=== PATIENT | male | born 1985 | race Caucasian/White ===

== ENCOUNTER 2022-07-18 20:59 | Emergency (ER) | payer OTHER ==
[2022-07-18 21:14] VITALS: TEMP 97.8
--- NOTE | 2022-07-18 21:31 | ED ---
General Adult HPI - General Chief complaint: Psychiatric Symptoms Stated complaint: Mental health Time Seen by Provider: 07/18/22 21:20 Source: patient, police, RN notes reviewed, old records reviewed Mode of arrival: ambulatory Limitations: no limitations - History of Present Illness Initial comments: Patient is a 36-year-old male with past medical history remarkable for bipolar disorder who states he is compliant with his medications was petitioned by his mother via court order petitioned for psychiatric evaluation. Has type 1 diabetes, and states his sugars usually run between 200- 300. Denies any nausea, vomiting, abdominal pain. Denies any chest pain. Denies any shortness of breath. States he is compliant with his insulin. States he is compliant with medications but is overdue for his shot she states he plans on getting the next few days. States it was due on the which is 2 days ago. Denies any suicidal or homicidal ideations, attempts, plans. Denies any visual or auditory hallucinations. Patient's mother left a lengthy note the dictation, however to paraphrase the patient may not be taking any of his medications, and she is concerned that he is convinced medical administrative technician otherwise. States he is severely bipolar. They have been urging him to go back to be a hospital for treatment but he will go. They're concerned that he is not taking care of his blood sugar level. He has been admitted to the [facility] 3 or 4 times in last 2 years. They're concerned that he may be using drugs. He is a . He is a history of delusional thoughts but are uncertain if he currently is having them. He is supposed be taking his medication in front of them but he doesn't. Patient states he is taking his medications when I discussed the dictation with him. He understands that he is on a court-ordered petition requires psychiatric evaluation because of it. Denies delusions. Denies hallucinations. Has no other acute complaints at this time. Is cooperative. - Related Data Allergies Allergy/AdvReac Type Severity Reaction Status Date / Time No Known Allergies Allergy Verified 07/18/22 22:08 Review of Systems ROS Statement: Those systems with pertinent positive or pertinent negative responses have been documented in the HPI. Review of Systems: CONST: Denies fever EYES: Denies blurry vision ENT: Denies nasal congestion C/V: Denies Chest pain RESP: Denies shortness of breath GI: Denies abdominal pain : Denies dysuria SKIN: Denies rash. MSK: Denies joint pain. NEURO: Denies headache PSYCH: Denies suicidal and homicidal ideations/plans/attempts. Denies visual or auditory hallucinations. ROS Other: All systems not noted in ROS Statement are negative. Past Medical History Past Medical History: Diabetes Mellitus Additional Past Medical History / Comment(s): Type I DM History of Any Multi-Drug Resistant Organisms: None Reported Past Surgical History: Orthopedic Surgery Additional Past Surgical History / Comment(s): Facial Surgery Past Psychological History: ADD/ADHD, Anxiety, Bipolar, Depression Smoking Status: Current every day smoker Past Alcohol Use History: None Reported Past Drug Use History: Marijuana General Exam - General Exam Comments Initial Comments: General: Appears in no acute distress. HEAD: Normal with no signs of head trauma. EYES: PERRLA, EOMI, conjunctiva normal, no discharge. ENT: Hearing grossly intact, normal oropharynx. RESPIRATORY: Clear breath sounds bilaterally. No wheezes, rales, or rhonchi. C/V: Regular rate and rhythm. S1 and S2 auscultated, no edema, peripheral pulses 2+ and intact throughout ABD: Abd is soft, nontender, nondistended EXT: Normal range of motion, no obvious deformity SKIN: No rashes or lesions observed on exposed skin. NEURO: Alert and oriented 4. Limitations: no limitations Course Vital Signs 07/18/22 07/19/22 07/19/22 21:06 00:00 01:48 Temperature 97.8 F Pulse Rate 103 H 92 85 Respiratory 18 16 Rate Blood Pressure 129/78 118/77 121/74 O2 Sat by Pulse 98 97 Oximetry Medical Decision Making - Medical Decision Making Based on the patient's presentation and physical exam, as well as the corner dictation, I do believe he requires psychiatric evaluation. Was placed in green scrubs. Sitter was ordered. BAT was obtained and is 0. UDS is pending at this time. Vital signs are within acceptable limits. I did request that we obtain a Accu-Chek and he was in agreement with this plan.Patient did just eat a sandwich, chips, juice. Accu-Chek is 293. He is on postprandial insulin dosing, and therefore we will provide him with his normal dose of 8 units of NovoLog. We'll recheck Accu-Chek afterwards. He is asymptomatic. No concern for DKA or electrolyte abnormalities at this time. Repeat sugar following insulin was 79. EPS evaluated the patient. They wanted to obtain a Depakote level for evaluation of medication compliance. Patient was in agreement this plan. Depakote level was therapeutic. They determined that the patient is stable for discharge home at this time. He'll provide him with a safety plan. Patient was in agreement this plan. EPS notified me of psychiatri c clearance. Patient was therefore discharged home in good condition. - Lab Data Lab Results 07/18/22 07/19/22 07/19/22 Range/Units 21:37 00:24 00:35 POC Glucose (mg/dL) 293 H 79 (70-110) mg/dL POC Glu Gear Room Keeper Eleazar Romano Jason Valproic Acid 57.4 ug/mL Disposition Clinical Impression: Encounter for psychiatric assessment, Diabetes Disposition: HOME SELF-CARE Condition: Good Additional Instructions: follow safety plan from EPS Is patient prescribed a controlled substance at d/c from ED?: No Referrals: None,Stated [Primary Care Provider] - 1-2 days Time of Disposition: 01:40
[2022-07-18 21:39] LABS: Glucose,Whole Blood 293 mg/dL (70-110)
[2022-07-18] MEDS ORDERED: INSULIN ASPART (NovoLOG) 100 UNIT/ML VIAL SQ ONE (21:44)
[2022-07-19 00:36] LABS: Glucose,Whole Blood 79 mg/dL (70-110)
[2022-07-19 00:43] VITALS: RESP 16
[2022-07-19 01:49] VITALS: BP 121/74; PULSE 85
== END 2022-07-19 02:17 | disposition home or self-care (01) ==
LOC: EC 20:59
DX: Z00.8 Encounter for other general examination (principal); E11.9 Type 2 diabetes mellitus without complications; F17.200 Nicotine dependence, unspecified, uncomplicated; F12.90 Cannabis use, unspecified, uncomplicated
CPT/HCPCS: 36415; 80164; 82075; 99284